=== PATIENT | female | born 1970 | race Caucasian/White ===

== ENCOUNTER 2017-04-03 06:36 | Emergency (ER) | payer OTHER ==
[2017-04-03] MEDS: ACETAMINOPHEN 500 MG TAB PO (07:31)
== END 2017-04-03 08:31 | disposition home or self-care (01) ==
LOC: FTE 06:36
DX: J10.1 Influenza due to other identified influenza virus with other respiratory manifestations (principal)
CPT/HCPCS: 71010; 71045; 87400; 99284-25